=== PATIENT | male | born 1970 | race Caucasian/White ===

== ENCOUNTER 2024-04-09 07:00 | Day surgery (SDC) | payer BC ==
[~2024-04-09 07:00] MED LIST: Ketorolac 30 MG/ML SDV ONE; Lactated Ringers 1,000 ML ONE; Midazolam 1 MG/ML 2 ML SDV ONE; Ondansetron 4 MG/2 ML SDV ONE; Propofol 200 MG/20 ML SDV ONE; Ropivacaine 0.5% 5 MG/ML 30 ML SDV ONE; Sodium Chloride 0.9% 10 ML Syringe FLUSH PRN; Sodium Chloride 0.9% 10 ML Syringe FLUSH SCH; ceFAZolin 2 GM Vial ONE; dexmedeTOMIDine HCl 200 MCG/2 ML SDV ONE; fentaNYL 100 MCG/2 ML SDV ONE
[2024-04-09] MEDS: Lactated Ringers 1,000 ML IV SCH (07:00)
[2024-04-09] MEDS ORDERED: Ondansetron 4 MG/2 ML SDV IVPUSH PRN (07:17)
[2024-04-09] MEDS ORDERED: fentaNYL 100 MCG/2 ML SDV IVPUSH PRN (07:17)
[2024-04-09] MEDS ORDERED: HYDROmorphone 0.5 MG/0.5 ML Syringe IVPUSH PRN (07:17)
[2024-04-09] MEDS: oxyCODONE ER 10 MG TAB.ER PO ONE (07:45)
[2024-04-09] MEDS: Pregabalin 25 MG Cap PO ONE (07:45)
[2024-04-09] MEDS: Acetaminophen 325 MG Tab PO ONE (07:45)
[2024-04-09] MEDS ORDERED: ePHEDrine 50 MG/ML SDV ONE (08:22)
[2024-04-09] MEDS ORDERED: Dexamethasone 4 MG/ML 5 ML MDV ONE (08:26)
[2024-04-09] MEDS ORDERED: Propofol 200 MG/20 ML SDV ONE ×2 (08:47→09:28)
[2024-04-09] MEDS: Morphine 8 MG, EPINEPHrine 0.3 MG, Cefuroxime 750 MG, Ketorolac 30 MG, Sodium Chloride ... PRN (09:28)
[2024-04-09] MEDS: VANCOmycin 1 GM SDV ONE (09:34)
[2024-04-09] MEDS: Tranexamic Acid 1,000 MG/10 ML Vial ONE (09:34)
[2024-04-09] MEDS: Triamcinolone Acetonide 40 MG/ML 1 ML SDV ONE (09:50)
[2024-04-09] MEDS: Bupivacaine 0.25% 10 ML SDV ONE (09:50)
[2024-04-09] MEDS: oxyCODONE 5 MG Tab PO ONE (11:16)
== END 2024-04-09 12:40 | disposition home or self-care (01) ==
LOC: JD.SDS 07:00
PROVIDERS: ATTEND Orthopaedic Surgery
DX: M17.0 Bilateral primary osteoarthritis of knee (principal); E78.5 Hyperlipidemia, unspecified; Z88.0 Allergy status to penicillin
CPT/HCPCS: 0055T; 20610; 27447; 64447; 73560; 97116; 97161; A9270; C1713; C1776; J0171; J0665; J0690; J0697; J1100; J1885; J2250; J2272; J2405; J2704; J2795; J3010; J3301; J7120; J3490

== ENCOUNTER 2024-07-16 07:29 | Day surgery (SDC) | payer BC ==
[~2024-07-16 07:29] MED LIST changes: -Ketorolac 30 MG/ML SDV ONE; -Lactated Ringers 1,000 ML ONE; -Midazolam 1 MG/ML 2 ML SDV ONE; -Ondansetron 4 MG/2 ML SDV ONE; -Propofol 200 MG/20 ML SDV ONE; -Ropivacaine 0.5% 5 MG/ML 30 ML SDV ONE; -ceFAZolin 2 GM Vial ONE; -dexmedeTOMIDine HCl 200 MCG/2 ML SDV ONE; -fentaNYL 100 MCG/2 ML SDV ONE
[2024-07-16] MEDS: Lactated Ringers 1,000 ML IV SCH (08:00)
[2024-07-16 08:09] LABS: HEMATOCRIT 43.9 % (42.0-52.0); MEAN CORPUSCULAR HEMOGLOBIN 30.5 pg (28.0-32.0); MEAN CORPUSCULAR HGB CONC 34.2 g/dl (32.0-36.0); MEAN CORPUSCULAR VOLUME 89.4 fl (83.0-99.0); MEAN PLATELET VOLUME 10.7 fl (9.4-12.4); PLATELET COUNT,PLT 206 K/mm3 (150-400); RED BLOOD CELL COUNT 4.91 M/mm3 (4.52-5.90); WHITE BLOOD CELL COUNT,WBC 6.31 K/mm3 (3.9-11.3)
[2024-07-16] MEDS ORDERED: Lidocaine 1% 0 ML ONE (08:10)
[2024-07-16] MEDS ORDERED: Midazolam 1 MG/ML 2 ML SDV ONE (08:10)
[2024-07-16] MEDS ORDERED: Ondansetron 4 MG/2 ML SDV IVPUSH PRN (08:10)
[2024-07-16] MEDS ORDERED: fentaNYL 100 MCG/2 ML SDV ONE (08:10)
[2024-07-16] MEDS ORDERED: Propofol 200 MG/20 ML SDV ONE ×2 (08:10→08:11)
[2024-07-16] MEDS ORDERED: HYDROmorphone 0.5 MG/0.5 ML Syringe IVPUSH PRN (08:10)
[2024-07-16] MEDS ORDERED: fentaNYL 100 MCG/2 ML SDV IVPUSH PRN (08:10)
[2024-07-16] MEDS: oxyCODONE ER 10 MG TAB.ER PO ONE (08:11)
[2024-07-16] MEDS ORDERED: Lactated Ringers 1,000 ML ONE (08:11)
[2024-07-16] MEDS: Acetaminophen 325 MG Tab PO ONE (08:12)
[2024-07-16] MEDS: Pregabalin 25 MG Cap PO ONE (08:12)
[2024-07-16 08:27] LABS: INR 1.08; PROTHROMBIN TIME 11.4 SECONDS (9.7-12.0)
[2024-07-16 08:28] LABS: PTT,PARTIAL THROMBOPLSTIN TIME 26.7 SECONDS (21.7-31.4)
[2024-07-16] MEDS ORDERED: ceFAZolin 2 GM Vial ONE (08:56)
[2024-07-16] MEDS ORDERED: dexmedeTOMIDine HCl 200 MCG/2 ML SDV ONE (09:07)
[2024-07-16] MEDS ORDERED: Ondansetron 4 MG/2 ML SDV ONE (09:07)
[2024-07-16] MEDS ORDERED: Dexamethasone 4 MG/ML 5 ML MDV ONE (09:07)
[2024-07-16] MEDS ORDERED: Ropivacaine 0.5% 5 MG/ML 30 ML SDV ONE (09:07)
[2024-07-16] MEDS ORDERED: Ketorolac 30 MG/ML SDV ONE (09:07)
[2024-07-16] MEDS ORDERED: ePHEDrine 50 MG/ML SDV ONE (09:18)
[2024-07-16] MEDS: Morphine 8 MG, EPINEPHrine 0.3 MG, Cefuroxime 750 MG, Ketorolac 30 MG, Sodium Chloride ... PRN (09:52)
[2024-07-16] MEDS: Tranexamic Acid 1,000 MG/10 ML Vial ONE (09:58)
[2024-07-16] MEDS: VANCOmycin 1 GM SDV ONE (09:58)
[2024-07-16] MEDS: oxyCODONE 5 MG Tab PO PRN (11:42)
== END 2024-07-16 12:08 | disposition home or self-care (01) ==
LOC: JD.SDS 07:29
PROVIDERS: ATTEND Orthopaedic Surgery
DX: M17.11 Unilateral primary osteoarthritis, right knee (principal); Z88.0 Allergy status to penicillin; Z79.899 Other long term (current) drug therapy
CPT/HCPCS: 0055T; 27447; 36415; 64447; 73560; 85027; 85610; 85730; 97116; 97161; A9270; J0171; J0690; J0697; J1100; J1885; J2250; J2272; J2405; J2704; J2795; J3010; J7120; 01400; J2003; J3490